=== PATIENT | female | born 1985 | race Hispanic/Latino ===

== ENCOUNTER 2018-07-24 11:04 | Outpatient (CLI) | payer OTHER | END 2018-07-24 19:12 | disposition home or self-care (01) | LOC: RAD 11:04 | DX: M79.603 Pain in arm, unspecified (principal); Z79.899 Other long term (current) drug therapy ==

== ENCOUNTER 2019-12-18 18:16 | Emergency (ER) | payer OTHER ==
[~2019-12-18] VITALS: Ht 170.2 cm; Wt 75.3 kg
[2019-12-18 18:22] VITALS: TEMP 98.5
[2019-12-18 19:30] LABS: PLATELET COUNT 279 K/uL (152-353)
[2019-12-18 19:43] LABS: POTASSIUM 3.6 mmol/L (3.6-5.2)
[2019-12-18 21:15] VITALS: BP 166/94
== END 2019-12-18 21:16 | disposition home or self-care (01) ==
LOC: ED 18:16
PROVIDERS: Hospitalist
DX: E11.65 Type 2 diabetes mellitus with hyperglycemia (principal); N39.0 Urinary tract infection, site not specified
CPT/HCPCS: 36415; 80053; 81000; 81002; 81025; 85027; 96365; 96375; 99284; J0696; J1815; Q9963

== ENCOUNTER 2020-11-29 10:24 | Emergency (ER) | payer OTHER ==
[~2020-11-29] VITALS: Ht 170.2 cm; Wt 77.1 kg
[2020-11-29 10:44] VITALS: BP 106/84; TEMP 99.5
== END 2020-11-29 12:40 | disposition home or self-care (01) ==
LOC: ED 10:24
DX: L50.8 Other urticaria (principal)
CPT/HCPCS: 96372; 99283; J1100; J1200

== ENCOUNTER 2021-04-05 23:49 | Emergency (ER) | payer OTHER ==
[~2021-04-05] VITALS: Ht 170.2 cm; Wt 76.2 kg
[2021-04-06 02:13] VITALS: BP 137/82; TEMP 99
== END 2021-04-06 02:13 | disposition home or self-care (01) ==
LOC: ED 23:49
DX: E11.65 Type 2 diabetes mellitus with hyperglycemia (principal); Z79.84 Long term (current) use of oral hypoglycemic drugs; Z20.822 Contact with and (suspected) exposure to COVID-19
CPT/HCPCS: 81000; 87635; 99283; U0003

== ENCOUNTER 2022-08-02 13:57 | Outpatient (CLI) | payer OTHER | END 2022-08-02 19:11 | disposition home or self-care (01) | LOC: US 13:57 | PROVIDERS: ATTEND Nurse Practitioner Family | DX: R20.0 Anesthesia of skin (principal) ==

== ENCOUNTER 2022-08-03 14:15 | Outpatient (CLI) | payer OTHER | END 2022-08-03 17:00 | disposition home or self-care (01) | LOC: US 14:15 | PROVIDERS: ATTEND Nurse Practitioner Family | DX: R20.0 Anesthesia of skin (principal) ==